=== PATIENT | female | born 1950 | race Caucasian/White ===

== ENCOUNTER 2017-09-02 19:14 | Inpatient (IN) | payer OTHER ==
[~2017-09-02] VITALS: Ht 167.6 cm; Wt 141.8 kg
[~2017-09-02 19:14] MED LIST: ADVIL200 MG PO; AMARYL4 MG PO; DUONEB 2.5-0.5 M3 ML AEROSOL; FAMOTIDINE20 MG PO; GLUCOPHAGE500 MG PO; GLYBURIDE5 MG PO; LANTUS 3 M100 UNITS1 SC; LIPITOR20 MG PO; NABI650T PO; NORVASC10 MG PO; NOVOLOG PE100 UNITS/ SC; ROBITUSSIN NIG118 ML PO; ROCEPHIN1000 MG IV; TYLENOL REGULA325 MG PO
[2017-09-02 20:11] LABS: BASOPHIL (%) 0.2 % (0-1); EOSINOPHIL (%) 0.9 % (0-5); EOSINOPHIL COUNT 0.1 K/uL (0-0.3); HEMOGLOBIN 11.3 G/DL (11.9-15.5); IMMATURE GRANULOCYTE (%) 0.5 % (0.0-0.7); LYMPHOCYTE (%) 2.2 % (15-42); LYMPHOCYTE COUNT 0.3 K/uL (1.0-2.8); MCH 27.4 PG (29.0-34.0); MCHC 32.3 G/DL (30.0-36.0); MONOCYTE (%) 3.9 % (3-12); MONOCYTE COUNT 0.6 K/uL (0-0.8); NEUTROPHIL (%) 92.3 % (45-76); NEUTROPHIL COUNT 13.6 K/uL (1.8-6.4); PLATELET COUNT 314 K/uL (156-360); RBC DIS.WIDTH-CV 16.3 % (11.8-14.6); RBC DIS.WIDTH-SD 50.8 % (39-53); RED BLOOD COUNT 4.12 M/uL (3.80-5.20); WHITE BLOOD COUNT 14.7 K/uL (4.1-10.2)
[2017-09-02 20:20] LABS: ALBUMIN 3.7 g/dL (3.2-4.8)
[2017-09-02 20:21] LABS: CHLORIDE 108 mEq/L (99-109); POTASSIUM 5.9 mEq/L (3.7-5.4); SODIUM 135 mEq/L (136-147)
[2017-09-02 20:23] LABS: GLUCOSE 291 mg/dL (70-99); TOTAL PROTEIN 8.5 g/dL (6.4-8.3)
[2017-09-02 20:25] LABS: TOTAL BILIRUBIN 0.7 mg/dL (0.0-1.0)
[2017-09-02 20:27] LABS: ALKALINE PHOSPHATASE 205 IU/L (3-129); CREATININE 1.9 mg/dL (0.6-1.3); GFR ESTIMATE (CALCULATED) 28 mL/min/
[2017-09-02 20:28] LABS: UREA NITROGEN (BUN) 29 mg/dL (9-23)
[2017-09-02 20:29] LABS: AST (GOT) 46 IU/L (2-34)
[2017-09-02 20:30] LABS: ALT (GPT) 28 IU/L (3-49)
[2017-09-02 20:34] LABS: TROP-I INTERPRETATION NEGATIVE; TROPONIN-I 0.02 ng/mL (0.0-0.30)
[2017-09-02 20:35] LABS: APPEARANCE CLOUDY ((CLEAR)); BILIRUBIN NEGATIVE; BLOOD LARGE; COLOR YELLOW ((YELLOW)); GLUCOSE (STRIP) NEGATIVE; KETONES NEGATIVE; LEUKOCYTES LARGE; NITRITE POSITIVE; PROTEIN (STRIP) 30; SPECIFIC GRAVITY 1.014 (1.000-1.030); UROBILINOGEN 0.2 MG/DL (0.2-1.0)
[2017-09-02 21:21] LABS: WHITE BLOOD CELLS 30-40 /HPF (0-5)
[2017-09-02 21:22] LABS: BACTERIA 3+ /HPF; EPITHELIAL CELLS 2+ /HPF; UCUL ADDED? YES
[2017-09-02 21:23] LABS: AMORPHOUS URATES CRYSTALS 1+
[2017-09-02 21:24] LABS: MUCUS 1+ /LPF
[2017-09-02] MEDS ORDERED: VITAMIN D31000 UNI2 PO (21:56)
[2017-09-02] MEDS ORDERED: JANUVIA100 MG PO (21:56)
[2017-09-02] MEDS ORDERED: LANTUS 10100 UNITS/ SC (21:56)
[2017-09-02] MEDS ORDERED: LISINOPRIL2.5 MG PO (21:56)
[2017-09-02] MEDS ORDERED: GLUCOPHAGE1000 MG PO (21:57)
[2017-09-02] MEDS ORDERED: AMLODIPINE BESY10 MG PO (21:57)
[2017-09-02] MEDS ORDERED: GLIMEPIRIDE4 MG PO (21:57)
[2017-09-02] MEDS ORDERED: ST. JOSEPH ASPI81 MG PO (21:57)
[2017-09-03] VITALS (9 sets, daily range): BP systolic 113–183; BP diastolic 57–109
[2017-09-03 03:14] LABS: BASOPHIL (%) 0.2 % (0-1); EOSINOPHIL (%) 0.1 % (0-5); HEMATOCRIT 30.6 % (36.0-46.0); HEMOGLOBIN 9.7 G/DL (11.9-15.5); IMMATURE GRANULOCYTE (%) 0.7 % (0.0-0.7); LYMPHOCYTE (%) 4.1 % (15-42); LYMPHOCYTE COUNT 0.5 K/uL (1.0-2.8); MCH 27.2 PG (29.0-34.0); MCHC 31.7 G/DL (30.0-36.0); MCV 85.7 FL (83-99); MONOCYTE (%) 2.9 % (3-12); MONOCYTE COUNT 0.4 K/uL (0-0.8); PLATELET COUNT 273 K/uL (156-360); RBC DIS.WIDTH-CV 16.1 % (11.8-14.6); RBC DIS.WIDTH-SD 50.2 % (39-53); RED BLOOD COUNT 3.57 M/uL (3.80-5.20); WHITE BLOOD COUNT 13.1 K/uL (4.1-10.2)
[2017-09-03 03:31] LABS: CHLORIDE 111 mEq/L (99-109); SODIUM 138 mEq/L (136-147)
[2017-09-03 03:32] LABS: GLUCOSE 208 mg/dL (70-99)
[2017-09-03 03:33] LABS: POTASSIUM 4.6 mEq/L (3.7-5.4)
[2017-09-03 03:36] LABS: CREATININE 1.8 mg/dL (0.6-1.3); GFR ESTIMATE (CALCULATED) 30 mL/min/
[2017-09-03 03:37] LABS: UREA NITROGEN (BUN) 30 mg/dL (9-23)
[2017-09-04 00:41] VITALS: BP 115/60
[2017-09-04 07:30] VITALS: BP 125/60
[2017-09-04 07:54] LABS: GLUCOSE 445 mg/dL (70-99)
[2017-09-04 09:29] LABS: HEMOGLOBIN 9.8 G/DL (11.9-15.5); MCH 27.1 PG (29.0-34.0); MCHC 31.6 G/DL (30.0-36.0); MCV 85.9 FL (83-99); PLATELET COUNT 243 K/uL (156-360); RBC DIS.WIDTH-CV 16.5 % (11.8-14.6); RBC DIS.WIDTH-SD 52.1 % (39-53); RED BLOOD COUNT 3.61 M/uL (3.80-5.20); WHITE BLOOD COUNT 11.9 K/uL (4.1-10.2)
[2017-09-04 09:47] LABS: CHLORIDE 104 MEQ/L (99-109); POTASSIUM 4.4 MEQ/L (3.7-5.4); SODIUM 134 MEQ/L (136-147); UREA NITROGEN (BUN) 37 mg/dL (9-23)
[2017-09-04 09:50] LABS: CREATININE 2.5 MG/DL (0.6-1.3); GFR ESTIMATE (CALCULATED) 21 mL/min/
[2017-09-04 10:59] LABS: ABS NEUTROPHIL COUNT 10.8; ANISOCYTOSIS 1+; BAND NEUTROPHILS 28.7 % (0-8.0); BURR CELLS 1+; EOSINOPHIL ABS CT 0; LYMPHOCYTES 4.4 % (15.0-45.0); MICROCYTOSIS 1+; MONOCYTES 5.2 % (0-9.0); OVALOCYTES 1+; PLAT.SUFFICIENCY ADEQUATE; POIKILOCYTOSIS 1+; SEG.NEUTROPHILS 61.7 % (46.0-76.0)
[2017-09-04 11:57] VITALS: BP 119/60
[2017-09-04 14:10] LABS: BASE EXCESS -10.9 mEq/L (-3 to +3); BICARBONATE 13.2 mEq/L (22-26); CARBOXY HGB 1.7 % (0-5); COMMENTS - BLOOD GASES A+C+; DEVICE RA; METHEMOGLOBIN 1.4 % (0-1.5); PCO2 24 mm Hg (35-45); PO2 79 mm Hg (80-100); SITE LR; pH 7.35 (7.35-7.45)
[2017-09-04 15:09] LABS: CHLORIDE 103 MEQ/L (99-109); CREATININE 2.5 MG/DL (0.6-1.3); GFR ESTIMATE (CALCULATED) 21 mL/min/; SODIUM 130 MEQ/L (136-147); UREA NITROGEN (BUN) 42 mg/dL (9-23)
[2017-09-04 15:10] LABS: GLUCOSE 404 mg/dL (70-99)
[2017-09-04 15:48] LABS: ALBUMIN 3.2 G/DL (3.2-4.8); ALKALINE PHOSPHATASE 126 IU/L (3-129); ALT (GPT) 28 IU/L (3-49); AST (GOT) 17 IU/L (2-34); CHLORIDE 104 MEQ/L (99-109); CREATINE KINASE 151 IU/L (1-294); CREATININE 2.5 MG/DL (0.6-1.3); GFR ESTIMATE (CALCULATED) 21 mL/min/; GLUCOSE 396 mg/dL (70-99); POTASSIUM 4.1 MEQ/L (3.7-5.4); SODIUM 131 MEQ/L (136-147); TOTAL BILIRUBIN 0.3 MG/DL (0.0-1.0); TOTAL PROTEIN 7.5 G/DL (6.4-8.3); UREA NITROGEN (BUN) 43 mg/dL (9-23)
[2017-09-04 16:55] VITALS: BP 122/72
[2017-09-04 20:23] VITALS: BP 112/64
[2017-09-04 23:24] VITALS: BP 121/60
[2017-09-05 03:38] VITALS: BP 119/67
[2017-09-05 06:26] LABS: BASOPHIL (%) 0.4 % (0-1); BASOPHIL COUNT 0.1 K/uL (0-0.1); EOSINOPHIL COUNT 0.5 K/uL (0-0.3); HEMATOCRIT 30.7 % (36.0-46.0); HEMOGLOBIN 9.6 G/DL (11.9-15.5); IMMATURE GRANULOCYTE (%) 1.6 % (0.0-0.7); LYMPHOCYTE (%) 4.8 % (15-42); LYMPHOCYTE COUNT 0.6 K/uL (1.0-2.8); MCH 26.4 PG (29.0-34.0); MCHC 31.3 G/DL (30.0-36.0); MCV 84.6 FL (83-99); MONOCYTE (%) 6.7 % (3-12); MONOCYTE COUNT 0.9 K/uL (0-0.8); NEUTROPHIL (%) 82.5 % (45-76); NEUTROPHIL COUNT 10.6 K/uL (1.8-6.4); PLATELET COUNT 302 K/uL (156-360); RBC DIS.WIDTH-CV 16.4 % (11.8-14.6); RBC DIS.WIDTH-SD 50.8 % (39-53); RED BLOOD COUNT 3.63 M/uL (3.80-5.20); WHITE BLOOD COUNT 12.8 K/uL (4.1-10.2)
[2017-09-05 06:47] LABS: CHLORIDE 103 MEQ/L (99-109); CREATININE 2.4 MG/DL (0.6-1.3); GFR ESTIMATE (CALCULATED) 22 mL/min/; GLUCOSE 204 mg/dL (70-99); SODIUM 132 MEQ/L (136-147); UREA NITROGEN (BUN) 44 mg/dL (9-23)
[2017-09-05 07:00] VITALS: BP 119/55
[2017-09-05 11:38] VITALS: BP 107/58
[2017-09-05 15:25] VITALS: BP 120/64
[2017-09-05 20:21] VITALS: BP 127/60
[2017-09-05 23:38] VITALS: BP 115/61
[2017-09-06 04:23] VITALS: BP 118/59
[2017-09-06 06:19] LABS: BASOPHIL (%) 0.5 % (0-1); BASOPHIL COUNT 0.1 K/uL (0-0.1); EOSINOPHIL (%) 5.9 % (0-5); EOSINOPHIL COUNT 0.6 K/uL (0-0.3); HEMATOCRIT 30.2 % (36.0-46.0); HEMOGLOBIN 9.4 G/DL (11.9-15.5); IMMATURE GRANULOCYTE (%) 1.2 % (0.0-0.7); LYMPHOCYTE (%) 7.7 % (15-42); LYMPHOCYTE COUNT 0.7 K/uL (1.0-2.8); MCH 26.2 PG (29.0-34.0); MCHC 31.1 G/DL (30.0-36.0); MCV 84.1 FL (83-99); MONOCYTE (%) 7.9 % (3-12); MONOCYTE COUNT 0.7 K/uL (0-0.8); NEUTROPHIL (%) 76.8 % (45-76); NEUTROPHIL COUNT 7.1 K/uL (1.8-6.4); PLATELET COUNT 277 K/uL (156-360); RBC DIS.WIDTH-CV 16.1 % (11.8-14.6); RBC DIS.WIDTH-SD 50.4 % (39-53); RED BLOOD COUNT 3.59 M/uL (3.80-5.20); WHITE BLOOD COUNT 9.3 K/uL (4.1-10.2)
[2017-09-06 06:46] LABS: CHLORIDE 110 MEQ/L (99-109); GLUCOSE 135 mg/dL (70-99); POTASSIUM 3.8 MEQ/L (3.7-5.4); UREA NITROGEN (BUN) 40 mg/dL (9-23)
[2017-09-06 06:50] LABS: CREATININE 1.9 MG/DL (0.6-1.3); GFR ESTIMATE (CALCULATED) 28 mL/min/; SODIUM 139 MEQ/L (136-147)
[2017-09-06 07:14] VITALS: BP 132/60
[2017-09-06 16:11] VITALS: BP 141/70
[2017-09-06 23:00] VITALS: BP 118/57
[2017-09-07 06:41] LABS: HEMATOCRIT 29.7 % (36.0-46.0); HEMOGLOBIN 9.1 G/DL (11.9-15.5); MCH 25.9 PG (29.0-34.0); MCHC 30.6 G/DL (30.0-36.0); MCV 84.6 FL (83-99); NRBC (%) 0.2 /100 WBC (0-0); PLATELET COUNT 292 K/uL (156-360); RBC DIS.WIDTH-CV 16.2 % (11.8-14.6); RBC DIS.WIDTH-SD 50.8 % (39-53); RED BLOOD COUNT 3.51 M/uL (3.80-5.20); WHITE BLOOD COUNT 10.1 K/uL (4.1-10.2)
[2017-09-07 07:00] VITALS: BP 124/59
[2017-09-07 07:07] LABS: ALBUMIN 2.8 G/DL (3.2-4.8); ALKALINE PHOSPHATASE 123 IU/L (3-129); ALT (GPT) 21 IU/L (3-49); AST (GOT) 17 IU/L (2-34); CHLORIDE 112 MEQ/L (99-109); CREATININE 1.6 MG/DL (0.6-1.3); GFR ESTIMATE (CALCULATED) 34 mL/min/; POTASSIUM 3.8 MEQ/L (3.7-5.4); SODIUM 142 MEQ/L (136-147); TOTAL BILIRUBIN 0.3 MG/DL (0.0-1.0); UREA NITROGEN (BUN) 28 mg/dL (9-23)
[2017-09-07 07:08] LABS: GLUCOSE 97 mg/dL (70-99); TOTAL PROTEIN 5.9 G/DL (6.4-8.3)
[2017-09-07 15:00] VITALS: BP 129/64
[2017-09-07] MEDS ORDERED: DOXYCYCLINE HY100 M3 PO (15:41)
[2017-09-07] MEDS ORDERED: LOPRESSOR50 MG PO (15:41)
[2017-09-07] MEDS ORDERED: SOD CITRATE-CI473 ML PO (15:41)
[2017-09-07] MEDS ORDERED: MYCOSTATIN 100,60 ML PO (15:41)
[2017-09-07] MEDS ORDERED: DUONEB 2.5-0.5 M3 ML AEROSOL (15:41)
[2017-09-07] MEDS ORDERED: NOVOLOG 10100 UNITS/ SC (15:41)
[2017-09-07] MEDS ORDERED: LANTUS 10100 UNITS/ SC (15:41)
[2017-09-07 23:11] VITALS: BP 129/65
[2017-09-08 06:15] LABS: HEMOGLOBIN 8.9 G/DL (11.9-15.5); MCH 27.1 PG (29.0-34.0); MCHC 31.8 G/DL (30.0-36.0); MCV 85.1 FL (83-99); NRBC (%) 0.3 /100 WBC (0-0); PLATELET COUNT 302 K/uL (156-360); RBC DIS.WIDTH-CV 16.2 % (11.8-14.6); RBC DIS.WIDTH-SD 50.9 % (39-53); RED BLOOD COUNT 3.29 M/uL (3.80-5.20); WHITE BLOOD COUNT 11.6 K/uL (4.1-10.2)
[2017-09-08 06:53] LABS: ALBUMIN 2.9 G/DL (3.2-4.8); ALKALINE PHOSPHATASE 127 IU/L (3-129); ALT (GPT) 18 IU/L (3-49); AST (GOT) 13 IU/L (2-34); CHLORIDE 110 MEQ/L (99-109); CREATININE 1.2 MG/DL (0.6-1.3); GFR ESTIMATE (CALCULATED) 48 mL/min/; GLUCOSE 112 mg/dL (70-99); POTASSIUM 3.7 MEQ/L (3.7-5.4); SODIUM 141 MEQ/L (136-147); TOTAL BILIRUBIN 0.3 MG/DL (0.0-1.0); TOTAL PROTEIN 5.9 G/DL (6.4-8.3); UREA NITROGEN (BUN) 20 mg/dL (9-23)
[2017-09-08 07:26] VITALS: BP 150/68
[2017-09-08] MEDS ORDERED: CEFTRIAXONE2 G1 IV (09:00)
== END 2017-09-08 13:49 | DRG 871 ==
LOC: EME 19:14 → 4EAST 23:04 → EDOF 23:04 → 5EAST 23:04 → 4WEST 23:04 → ENRESERV 23:18 → 4EAST 09-03 00:36 → ENRESERV 09-03 16:10 → 5EAST 09-03 18:06 → 4WEST 09-04 13:54 → ENRESERV 09-04 13:59 → 5EAST 09-04 14:03 → ENRESERV 09-04 14:04 → CANRESERV 09-04 14:04 → 5EAST 09-08 13:49
PROVIDERS: Emergency Medicine; Family Medicine; Internal Medicine; Internal Medicine Nephrology
PROC: 0H96XZZ Drainage of Back Skin, External Approach (ICD-10-PCS; principal; 2017-09-02)
DX: A40.8 Other streptococcal sepsis (principal); L02.212 Cutaneous abscess of back [any part, except buttock and flank]; N17.0 Acute kidney failure with tubular necrosis; R65.20 Severe sepsis without septic shock; E87.2 Acidosis; L03.312 Cellulitis of back [any part except buttock and flank]; L03.115 Cellulitis of right lower limb; N39.0 Urinary tract infection, site not specified; I12.9 Hypertensive chronic kidney disease with stage 1 through stage 4 chronic kidney disease, or unspecified chronic kidney disease; E11.22 Type 2 diabetes mellitus with diabetic chronic kidney disease; N18.2 Chronic kidney disease, stage 2 (mild); E11.65 Type 2 diabetes mellitus with hyperglycemia; B96.20 Unspecified Escherichia coli [E. coli] as the cause of diseases classified elsewhere; B95.61 Methicillin susceptible Staphylococcus aureus infection as the cause of diseases classified elsewhere; I87.2 Venous insufficiency (chronic) (peripheral); I89.0 Lymphedema, not elsewhere classified; I87.8 Other specified disorders of veins; D23.72 Other benign neoplasm of skin of left lower limb, including hip; D23.71 Other benign neoplasm of skin of right lower limb, including hip; K21.9 Gastro-esophageal reflux disease without esophagitis; E78.5 Hyperlipidemia, unspecified; I25.10 Atherosclerotic heart disease of native coronary artery without angina pectoris; G47.33 Obstructive sleep apnea (adult) (pediatric); M19.90 Unspecified osteoarthritis, unspecified site; G89.29 Other chronic pain; M54.5 Low back pain; E66.01 Morbid (severe) obesity due to excess calories; Z68.43 Body mass index [BMI] 50.0-59.9, adult; Z79.82 Long term (current) use of aspirin; Z79.4 Long term (current) use of insulin; Z91.19 Patient's noncompliance with other medical treatment and regimen
CPT/HCPCS: 36600; 71045; 76705; 76770; 80048; 80048 91; 80053; 81003; 82010; 82550; 82803; 82948; 83605; 83735; 83880; 84100; 84484; 84999; 85025; 85027; 87040; 87070; 87075; 87077; 87086 GA; 87186; 87205; 87502; 87801; 93005; 97530 GO; 99202; 99281; 99285; A6212; C1753; J0696; J1644; J1815; J2405; J2543; J3370; J7030; J7050

== ENCOUNTER 2017-09-27 14:06 | Inpatient (IN) | payer OTHER ==
[~2017-09-27] VITALS: Ht 167.6 cm; Wt 143.2 kg
[~2017-09-27 14:06] MED LIST changes: +AMLODIPINE BESY10 MG PO; +CEFTRIAXONE2 G1 IV; +DOXYCYCLINE HY100 M3 PO; +GLIMEPIRIDE4 MG PO; +GLUCOPHAGE1000 MG PO; +JANUVIA100 MG PO; +LANTUS 10100 UNITS/ SC; +LISINOPRIL2.5 MG PO; +LOPRESSOR50 MG PO; +MYCOSTATIN 100,60 ML PO; +NOVOLOG 10100 UNITS/ SC; +SOD CITRATE-CI473 ML PO; +ST. JOSEPH ASPI81 MG PO; +VITAMIN D31000 UNI2 PO
[2017-09-27 14:57] LABS: HEMATOCRIT 31.8 % (36.0-46.0); HEMOGLOBIN 9.9 G/DL (11.9-15.5); MCH 26.1 PG (29.0-34.0); MCHC 31.1 G/DL (30.0-36.0); MCV 83.9 FL (83-99); PLATELET COUNT 453 K/uL (156-360); RBC DIS.WIDTH-CV 16.7 % (11.8-14.6); RBC DIS.WIDTH-SD 51.6 % (39-53); RED BLOOD COUNT 3.79 M/uL (3.80-5.20)
[2017-09-27 15:08] LABS: CHLORIDE 104 mEq/L (99-109); POTASSIUM 4.4 mEq/L (3.7-5.4); SODIUM 136 mEq/L (136-147)
[2017-09-27 15:10] LABS: GLUCOSE 146 mg/dL (70-99)
[2017-09-27 15:14] LABS: GFR ESTIMATE (CALCULATED) 22 mL/min/
[2017-09-27 15:15] LABS: CREATININE 2.4 mg/dL (0.6-1.3); UREA NITROGEN (BUN) 22 mg/dL (9-23)
[2017-09-27 15:19] LABS: TROP-I INTERPRETATION NEGATIVE; TROPONIN-I 0.02 ng/mL (0.0-0.30)
[2017-09-27 16:18] LABS: APPEARANCE CLEAR ((CLEAR)); BILIRUBIN NEGATIVE; BLOOD NEGATIVE; COLOR YELLOW ((YELLOW)); GLUCOSE (STRIP) NEGATIVE; KETONES NEGATIVE; LEUKOCYTES NEGATIVE; NITRITE NEGATIVE; PROTEIN (STRIP) NEGATIVE; UROBILINOGEN 0.2 MG/DL (0.2-1.0)
[2017-09-27] MEDS ORDERED: LANTUS 10100 UNITS/ SC ×2 (17:17)
[2017-09-27] MEDS ORDERED: LOPRESSOR50 MG PO (17:19)
[2017-09-27] MEDS ORDERED: BENADRYL ALLERG25 MG PO (17:20)
[2017-09-27] MEDS ORDERED: DULCOLAX10 MG PR (17:21)
[2017-09-27] MEDS ORDERED: PHILLIPS'400 MG/5 M PO (17:22)
[2017-09-27] MEDS ORDERED: MIRALAX119 GM PO (17:22)
[2017-09-27 18:43] LABS: ALBUMIN 3.1 g/dL (3.2-4.8)
[2017-09-27 18:46] LABS: TOTAL PROTEIN 7.1 g/dL (6.4-8.3)
[2017-09-27 18:48] LABS: TOTAL BILIRUBIN 0.6 mg/dL (0.0-1.0)
[2017-09-27 18:49] LABS: ALKALINE PHOSPHATASE 151 IU/L (3-129)
[2017-09-27 18:51] LABS: AST (GOT) 10 IU/L (2-34); DIRECT BILIRUBIN 0.3 mg/dL (0.0-0.3)
[2017-09-27 18:52] LABS: ALT (GPT) 9 IU/L (3-49)
[2017-09-27 20:26] VITALS: BP 97/55
[2017-09-27 23:52] VITALS: BP 102/59
[2017-09-28 05:47] LABS: HEMOGLOBIN 9.8 G/DL (11.9-15.5); MCH 25.7 PG (29.0-34.0); MCHC 29.7 G/DL (30.0-36.0); MCV 86.6 FL (83-99); PLATELET COUNT 380 K/uL (156-360); RBC DIS.WIDTH-CV 16.7 % (11.8-14.6); RBC DIS.WIDTH-SD 53.6 % (39-53); RED BLOOD COUNT 3.81 M/uL (3.80-5.20)
[2017-09-28 06:05] LABS: WHITE BLOOD COUNT 1.9 K/uL (4.1-10.2)
[2017-09-28 06:13] LABS: CHLORIDE 104 MEQ/L (99-109); CREATININE 1.8 MG/DL (0.6-1.3); GFR ESTIMATE (CALCULATED) 30 mL/min/; GLUCOSE 138 mg/dL (70-99); POTASSIUM 4.6 MEQ/L (3.7-5.4); SODIUM 135 MEQ/L (136-147); UREA NITROGEN (BUN) 22 mg/dL (9-23)
[2017-09-28 07:36] LABS: HEMATOCRIT 22.6 % (36.0-46.0); MCH 26.2 PG (29.0-34.0); MCHC 29.6 G/DL (30.0-36.0); MCV 88.3 FL (83-99); PLATELET COUNT 272 K/uL (156-360); RBC DIS.WIDTH-CV 16.7 % (11.8-14.6)
[2017-09-28 07:37] LABS: HEMOGLOBIN 6.7 G/DL (11.9-15.5); RED BLOOD COUNT 2.56 M/uL (3.80-5.20); WHITE BLOOD COUNT 1.2 K/uL (4.1-10.2)
[2017-09-28 08:01] LABS: ABS NEUTROPHIL COUNT 0.5; ANISOCYTOSIS 1+; BAND NEUTROPHILS 15.9 % (0-8.0); BURR CELLS 1+; EOSINOPHIL ABS CT 0.3; EOSINOPHILS 21.2 % (0-5.0); METAMYELOCYTES 5.3 %; MICROCYTOSIS 1+; MONOCYTES 9.7 % (0-9.0); MYELOCYTES 2.7 %; NUCLEATED RBC'S 0.9; OVALOCYTES 1+; PLAT.SUFFICIENCY ADEQUATE; POIKILOCYTOSIS 2+; SMUDGE CELLS 18.6
[2017-09-28 08:02] LABS: LYMPHOCYTES 17.7 % (15.0-45.0); SEG.NEUTROPHILS 27.5 % (46.0-76.0)
[2017-09-28 08:08] VITALS: BP 121/58
[2017-09-28 10:22] LABS: HEMATOCRIT 32.4 % (36.0-46.0); HEMOGLOBIN 9.7 G/DL (11.9-15.5); MCV 87.6 FL (83-99)
[2017-09-28 10:32] LABS: ABS NEUTROPHIL COUNT 0.4; ANISOCYTOSIS 1+; ATYPICAL LYMPHOCYTE 7.4 %; BASOPH.STIPPLING 1+; BASOPHILS 2.8 %; BURR CELLS 2+; EOSINOPHIL ABS CT 0.1; EOSINOPHILS 2.8 % (0-5.0); HYPOCHROMASIA 2+; LYMPHOCYTES 40.7 % (15.0-45.0); METAMYELOCYTES 2.8 %; MICROCYTOSIS 1+; MONOCYTES 30.6 % (0-9.0); OVALOCYTES 1+; PLAT.SUFFICIENCY INCREASED; POIKILOCYTOSIS 1+; POLYCHROMASIA 1+; SEG.NEUTROPHILS 0.9 % (46.0-76.0)
[2017-09-28 12:06] VITALS: BP 121/83
[2017-09-28 16:18] VITALS: BP 140/63
[2017-09-28 20:00] VITALS: BP 116/62
[2017-09-28 23:34] VITALS: BP 73/45
[2017-09-29] VITALS (10 sets, daily range): BP systolic 10–166; BP diastolic 39–72
[2017-09-29 05:36] LABS: HEMATOCRIT 31.4 % (36.0-46.0); HEMOGLOBIN 9.1 G/DL (11.9-15.5); MCH 25.1 PG (29.0-34.0); MCV 86.7 FL (83-99); RBC DIS.WIDTH-CV 16.8 % (11.8-14.6); RBC DIS.WIDTH-SD 54.1 % (39-53); WHITE BLOOD COUNT 3.2 K/uL (4.1-10.2)
[2017-09-29 05:39] LABS: CHLORIDE 108 MEQ/L (99-109); CREATININE 1.6 MG/DL (0.6-1.3); GFR ESTIMATE (CALCULATED) 34 mL/min/; GLUCOSE 190 mg/dL (70-99); MAGNESIUM 1.6 mg/dl (1.3-2.7); POTASSIUM 4.9 MEQ/L (3.7-5.4); SODIUM 135 MEQ/L (136-147); UREA NITROGEN (BUN) 19 mg/dL (9-23)
[2017-09-29 05:43] LABS: RED BLOOD COUNT 3.62 M/uL (3.80-5.20)
[2017-09-29 06:09] LABS: ABS NEUTROPHIL COUNT 2.2; BAND NEUTROPHILS 8.8 % (0-8.0); BASOPHILS 0.9 %; BURR CELLS 1+; EOSINOPHIL ABS CT 0.1; LYMPHOCYTES 13.3 % (15.0-45.0); METAMYELOCYTES 6.2 %; MONOCYTES 2.6 % (0-9.0); MYELOCYTES 2.7 %; NUCLEATED RBC'S 1.8; OVALOCYTES 1+; PLAT.SUFFICIENCY ADEQUATE; PLATELET COUNT 317 K/uL (156-360); POIKILOCYTOSIS 2+
[2017-09-29 06:11] LABS: EOSINOPHILS 4.4 % (0-5.0); SEG.NEUTROPHILS 61.1 % (46.0-76.0)
[2017-09-30 04:00] VITALS: BP 134/72
[2017-09-30 05:50] LABS: VANCOMYCIN, TROUGH 11.7 MCG/ML (10-20)
[2017-09-30 08:22] LABS: CHLORIDE 109 MEQ/L (99-109); CREATININE 1.3 MG/DL (0.6-1.3); GFR ESTIMATE (CALCULATED) 44 mL/min/; POTASSIUM 4.9 MEQ/L (3.7-5.4); SODIUM 136 MEQ/L (136-147); UREA NITROGEN (BUN) 20 mg/dL (9-23)
[2017-09-30 08:26] LABS: GLUCOSE 318 mg/dL (70-99)
[2017-09-30 08:57] VITALS: BP 131/71
[2017-09-30 10:28] VITALS: BP 140/64
[2017-09-30 16:16] VITALS: BP 131/68
[2017-10-01 00:18] VITALS: BP 131/68
[2017-10-01 08:03] VITALS: BP 130/74
[2017-10-01 16:27] VITALS: BP 132/67
[2017-10-01 23:44] VITALS: BP 134/73
[2017-10-02 07:42] VITALS: BP 153/73
[2017-10-03 00:24] VITALS: BP 166/68
[2017-10-03 08:02] VITALS: BP 142/65
[2017-10-03 09:44] LABS: HEMATOCRIT 33.8 % (36.0-46.0); HEMOGLOBIN 10.2 G/DL (11.9-15.5); MCHC 30.2 G/DL (30.0-36.0); NRBC (%) 0.6 /100 WBC (0-0); PLATELET COUNT 317 K/uL (156-360); RBC DIS.WIDTH-CV 16.7 % (11.8-14.6); RED BLOOD COUNT 3.93 M/uL (3.80-5.20); WHITE BLOOD COUNT 12.6 K/uL (4.1-10.2)
[2017-10-03 10:38] LABS: CHLORIDE 108 MEQ/L (99-109); CREATININE 1.2 MG/DL (0.6-1.3); GFR ESTIMATE (CALCULATED) 48 mL/min/; GLUCOSE 228 mg/dL (70-99); POTASSIUM 4.2 MEQ/L (3.7-5.4); SODIUM 137 MEQ/L (136-147); UREA NITROGEN (BUN) 14 mg/dL (9-23)
[2017-10-03] MEDS ORDERED: LOPRESSOR25 MG PO (11:38)
[2017-10-03] MEDS ORDERED: DOXYCYCLINE HY100 MG PO (11:39)
[2017-10-03] MEDS ORDERED: CIPRO500 MG PO (11:39)
[2017-10-03] MEDS ORDERED: FLORASTOR250 MG PO (11:47)
[2017-10-03 15:49] VITALS: BP 122/67
[2017-10-03 23:40] VITALS: BP 110/55
[2017-10-04 07:22] VITALS: BP 130/64
== END 2017-10-04 18:49 | DRG 871 ==
LOC: EME 14:06 → EDOF 17:52 → 4SOUTH 17:52 → EDOF 17:52 → ENRESERV 18:01 → 4SOUTH 20:02 → 5SOUTH 09-28 10:22 → 4SOUTH 09-28 10:22 → ENRESERV 09-28 10:37 → CANRESERV 09-28 10:37 → 4SOUTH 09-29 02:22 → ENRESERV 09-29 02:25 → 4EAST 09-29 03:29 → ENRESERV 09-30 07:36 → 5SOUTH 09-30 09:38
PROVIDERS: Emergency Medicine; Hospitalist; Physician Assistant; Physician Assistant Medical
DX: A41.9 Sepsis, unspecified organism (principal); L03.115 Cellulitis of right lower limb; L03.116 Cellulitis of left lower limb; R65.20 Severe sepsis without septic shock; B96.5 Pseudomonas (aeruginosa) (mallei) (pseudomallei) as the cause of diseases classified elsewhere; B95.62 Methicillin resistant Staphylococcus aureus infection as the cause of diseases classified elsewhere; G93.41 Metabolic encephalopathy; N17.9 Acute kidney failure, unspecified; E11.65 Type 2 diabetes mellitus with hyperglycemia; L89.159 Pressure ulcer of sacral region, unspecified stage; I13.0 Hypertensive heart and chronic kidney disease with heart failure and stage 1 through stage 4 chronic kidney disease, or unspecified chronic kidney disease; I50.9 Heart failure, unspecified; E11.22 Type 2 diabetes mellitus with diabetic chronic kidney disease; N18.2 Chronic kidney disease, stage 2 (mild); E66.01 Morbid (severe) obesity due to excess calories; Z68.43 Body mass index [BMI] 50.0-59.9, adult; E87.2 Acidosis; E11.622 Type 2 diabetes mellitus with other skin ulcer; I83.218 Varicose veins of right lower extremity with both ulcer of other part of lower extremity and inflammation; I83.228 Varicose veins of left lower extremity with both ulcer of other part of lower extremity and inflammation; L97.819 Non-pressure chronic ulcer of other part of right lower leg with unspecified severity; L97.829 Non-pressure chronic ulcer of other part of left lower leg with unspecified severity; I95.9 Hypotension, unspecified; G47.33 Obstructive sleep apnea (adult) (pediatric); I89.0 Lymphedema, not elsewhere classified; D64.9 Anemia, unspecified; E03.9 Hypothyroidism, unspecified; E86.0 Dehydration; E78.5 Hyperlipidemia, unspecified; L27.0 Generalized skin eruption due to drugs and medicaments taken internally; D70.2 Other drug-induced agranulocytosis; T36.1X5A Adverse effect of cephalosporins and other beta-lactam antibiotics, initial encounter; M19.90 Unspecified osteoarthritis, unspecified site; D23.72 Other benign neoplasm of skin of left lower limb, including hip; D23.71 Other benign neoplasm of skin of right lower limb, including hip; K43.9 Ventral hernia without obstruction or gangrene; Z79.4 Long term (current) use of insulin; Z79.82 Long term (current) use of aspirin; Z80.6 Family history of leukemia
CPT/HCPCS: 71045; 74018; 80048; 80076; 80202; 81003; 82948; 83605; 83735; 84484; 85014; 85018; 85025; 85027; 86850; 86900; 86901; 86920; 87040; 87070; 87075; 87076; 87077; 87147; 87186; 87205; 87641; 93005; 94799; 97530 GP; 99202; 99281; 99285; A6212; A6260; G0378; J0696; J1200; J1644; J1815; J1956; J2405; J2930; J3370; J7030; J7120